=== PATIENT | female | born 1975 | race Two or more races ===

== ENCOUNTER 2019-12-06 09:14 | Outpatient (CLI) | payer OTHER | END 2019-12-06 09:23 | disposition home or self-care (01) | LOC: MAMO-SONO 09:14 | PROVIDERS: ATTEND General Practice | DX: Z12.31 Encounter for screening mammogram for malignant neoplasm of breast (principal) ==

== ENCOUNTER 2020-02-16 12:17 | Outpatient (CLI) | payer OTHER | END 2020-02-16 13:39 | disposition home or self-care (01) | LOC: RAD 12:17 → MAMO-SONO 13:15 → RAD 13:39 | PROVIDERS: ATTEND General Practice | DX: M25.511 Pain in right shoulder (principal); M54.2 Cervicalgia ==

== ENCOUNTER 2021-07-03 09:10 | Outpatient (CLI) | payer OTHER | END 2021-07-03 09:12 | disposition home or self-care (01) | LOC: MAMO-SONO 09:10 | PROVIDERS: ATTEND General Practice | DX: Z12.31 Encounter for screening mammogram for malignant neoplasm of breast (principal) ==

== ENCOUNTER 2021-08-03 09:01 | Outpatient (CLI) | payer OTHER | END 2021-08-03 09:07 | disposition home or self-care (01) | LOC: SONOGRAMA 09:01 | PROVIDERS: ATTEND General Practice | DX: Z13.29 Encounter for screening for other suspected endocrine disorder (principal) ==

== ENCOUNTER 2023-11-03 09:43 | Outpatient (CLI) | payer OTHER | END 2023-11-03 09:52 | disposition home or self-care (01) | LOC: MAMO-SONO 09:43 | PROVIDERS: ATTEND General Practice | DX: Z12.31 Encounter for screening mammogram for malignant neoplasm of breast (principal); D25.9 Leiomyoma of uterus, unspecified ==

== ENCOUNTER 2024-01-30 07:46 | Outpatient (CLI) | payer OTHER | END 2024-01-30 07:54 | disposition home or self-care (01) | LOC: SONOGRAMA 07:46 | PROVIDERS: ATTEND General Practice | DX: R10.9 Unspecified abdominal pain (principal); R31.29 Other microscopic hematuria ==

== ENCOUNTER 2024-03-02 07:55 | Outpatient (CLI) | payer OTHER | END 2024-03-02 08:00 | disposition home or self-care (01) | LOC: SONOGRAMA 07:55 | PROVIDERS: ATTEND General Practice | DX: D25.9 Leiomyoma of uterus, unspecified (principal); N93.9 Abnormal uterine and vaginal bleeding, unspecified ==

== ENCOUNTER 2024-07-27 12:16 | Outpatient (CLI) | payer OTHER | END 2024-07-27 12:26 | disposition home or self-care (01) | LOC: RAD 12:16 | PROVIDERS: ATTEND General Practice | DX: M54.2 Cervicalgia (principal); M25.511 Pain in right shoulder ==